=== PATIENT | male | born 1965 | race American Indian/Alaskan Native ===

== ENCOUNTER 2017-09-01 19:07 | Emergency (ER) | payer SELFPAY ==
--- NOTE | 2017-09-01 20:03 | Cat Scan Report ---
FINAL REPORT PROCEDURE: CT HEAD/BRAIN WO CON TECHNIQUE: Computerized tomography of the head was performed without contrast material. HISTORY: head injury COMPARISON: No prior studies are available for comparison. FINDINGS: There is no CT evidence of intracranial mass, hemorrhage, acute territorial infarction, or hydrocephalus. The intracranial arteries are symmetric in density. Calvarium is intact. Visualized paranasal sinuses and mastoids are aerated. IMPRESSION: No CT evidence of acute intracranial abnormality
[2017-09-02] MEDS ORDERED: TORADOL IM ONE (02:02)
--- NOTE | 2017-09-02 02:08 | Emergency Department Report ---
ED Head Trauma HPI - General Chief complaint: Head Injury Stated complaint: HEAD INJURY/POSSIBLE CONCUSSION Time Seen by Provider: 09/02/17 01:41 Source: patient Mode of arrival: Ambulatory Limitations: No Limitations - History of Present Illness Initial comments: 52-year-old male with no past medical history presents to the hospital complains of headache and syncope status post head injury. On August 28 patient had a helmet on when a concrete plate fell from a two-story height on the top of his head. Positive LOC and confusion after the event. Patient's continued to have a headache and right-sided neck pain worse with movement and palpation. Pain currently rated 6 out of 10 in intensity. He is taking Tammie aspirin with some relief at home. Today was sitting in a bed on the phone he felt nauseated and dizzy and passed out between 7 AM and 1 PM as per patient's family member. Patient was home alone at the time. No complaints of chest pain , shortness of breath, vomiting, weakness, or paresthesias. - Related Data Previous Rx's Medication Instructions Recorded Last Taken Type Ibuprofen [Motrin] 800 mg PO Q8HR PRN #30 tablet 09/02/17 Unknown Rx Allergies/Adverse reactions: Allergies Allergy/AdvReac Type Severity Reaction Status Date / Time No Known Allergies Allergy Verified 09/02/17 04:46 ED Review of Systems ROS: Stated complaint: HEAD INJURY/POSSIBLE CONCUSSION Other details as noted in HPI Comment: All other systems reviewed and negative Other: Constitutional: No fevers chills Eyes: No eye pain visual changes ENT: No ear pain or throat pain Neck: as per hpi Respiratory: Denies cough wheezing shortness of breath Cardiovascular: Denies chest pain, palpitations GI: Denies abdominal pain, vomiting, diarrhea, : Denies dysuria, urinary frequency, or urgency Musculoskeletal: Denies back pain, joint swelling Skin: Denies rash, lesions, erythema Neurologic: Denies headache, numbness, weakness Psychiatric: Denies suicidal ideation, hallucinations ED Past Medical Hx - Past Medical History Previous Medical History?: No - Surgical History Past Surgical History?: No - Social History Smoking Status: Never Smoker Substance Use Type: None - Medications Home Medications: Home Medications Medication Instructions Recorded Confirmed Last Taken Type Ibuprofen [Motrin] 800 mg PO Q8HR PRN #30 tablet 09/02/17 Unknown Rx ED Physical Exam - General Limitations: No Limitations - Other Other exam information: General: No limitations, patient is alert in no acute distress Head exam: No hematoma, normocephalic Eyes exam: Normal appearance ENT: Moist mucous membrane, normal oropharynx Neck exam: Normal inspection, full range of motion, no meningismus, right sided neck tenderness trapezius sternocleidomastoid without midline tenderness or step -off Respiratory exam: Clear to auscultation bilateral, no wheezes, rales, crackles Cardiovascular: Normal rate and rhythm, normal heart sounds Abdomen: Soft, nondistended, and nontender, with normal bowel sounds, no rebound, or guarding Extremity: Full range of motion normal inspection no deformity Back: Normal Inspection, full range of motion, no tenderness Neurologic: Alert, oriented x3, cranial nerves intact, no motor or sensory deficit Psychiatric: normal affect, normal mood Skin: Warm, dry, intact ED Course Vital Signs 09/01/17 09/02/17 09/02/17 19:23 00:39 00:40 Temperature 98.3 F Pulse Rate 77 73 Respiratory 17 16 16 Rate Blood Pressure 156/108 Blood Pressure 146/96 [Left] O2 Sat by Pulse 99 Oximetry 09/02/17 05:18 Temperature Pulse Rate 70 Respiratory 16 Rate Blood Pressure Blood Pressure 139/93 [Left] O2 Sat by Pulse 98 Oximetry - Reevaluation(s) Reevaluation #1: 09/02/17 06:56 Patient was orthostatic with an almost 30 beat increase in heart rate with standing. BP did not decrease. Patient received 1 L normal saline. Toradol helped with pain. - Lab Data Result diagrams: 09/02/17 02:14 09/02/17 02:14 Lab Results 09/02/17 09/02/17 Range/Units 02:14 02:14 WBC 7.9 (4.5-11.0) K/mm3 RBC 5.07 H (3.65-5.03) M/mm3 Hgb 15.1 (11.8-15.2) gm/dl Hct 44.0 (35.5-45.6) % MCV 87 (84-94) fl MCH 30 (28-32) pg MCHC 34 (32-34) % RDW 13.4 (13.2-15.2) % Plt Count 217 (140-440) K/mm3 Lymph % (Auto) 41.6 H (13.4-35.0) % Faulk % (Auto) 10.2 H (0.0-7.3) % Eos % (Auto) 3.3 (0.0-4.3) % Baso % (Auto) 0.3 (0.0-1.8) % Lymph # 3.3 (1.2-5.4) K/mm3 Faulk # 0.8 (0.0-0.8) K/mm3 Eos # 0.3 (0.0-0.4) K/mm3 Baso # 0.0 (0.0-0.1) K/mm3 Seg Neutrophils % 44.6 (40.0-70.0) % Seg Neutrophils # 3.5 (1.8-7.7) K/mm3 Sodium 141 (137-145) mmol/L Potassium 3.4 L (3.6-5.0) mmol/L Chloride 100.1 (98-107) mmol/L Carbon Dioxide 27 (22-30) mmol/L Anion Gap 17 mmol/L BUN 12 (9-20) mg/dL Creatinine 0.7 L (0.8-1.5) mg/dL Estimated GFR > 60 ml/min BUN/Creatinine Ratio 17 % Glucose 95 (75-100) mg/dL Calcium 8.6 (8.4-10.2) mg/dL Total Creatine Kinase 92 (55-170) units/L CK-MB (CK-2) 2.0 (0.0-4.0) ng/mL CK-MB (CK-2) Rel Index 2.1 (0-4) Troponin T < 0.010 (0.00-0.029) ng/mL - EKG Data -: EKG Interpreted by Ri EKG shows normal: sinus rhythm, axis (-19), QRS complexes (94), ST-T waves (no stemi/t inv) Rate: normal (64) - Radiology Data Radiology results: report reviewed Read by radiologist CT head: No acute findings ct cervical spine: Degenerative changes no acute finding - Medical Decision Making Patient discharged home with Motrin as needed for pain interest to follow with a primary care doctor and neurologist for postconcussive syndrome. Positive orthostasis was noted and patient received IV fluids. Blood pressure was mildly elevated but improved prior to discharge. - Differential Diagnosis concussion, ICH, fracture, anemia, arrhythmia, dehydration Critical Care Time: No Critical care attestation.: If time is entered above; I have spent that time in minutes in the direct care of this critically ill patient, excluding procedure time. ED Disposition Clinical Impression: Concussion syndrome, Syncope, Dehydration Disposition: DC-01 TO HOME OR SELFCARE Is pt being admited?: No Does the pt Need Aspirin: No Condition: Stable Instructions: Syncope (ED), Concussion (ED) Additional Instructions: Take the medication as needed for pain. Do not take this and Tammie aspirin together. Return if symptoms worsen. Alert with the primary care clinic and neurologist Prescriptions: Ibuprofen [Motrin] 800 mg PO Q8HR PRN #30 tablet PRN Reason: Pain Referrals: DERIK JACKSON MD [Staff Physician] - 3-5 Days (Neurologist) [facility] [Provider Group] - 3-5 Days (Primary care clinic) Time of Disposition: 06:59
[2017-09-02 02:38] LABS: Basophils % (Auto) 0.3 % (0.0-1.8); Eosinophils # (Auto) 0.3 K/mm3 (0.0-0.4); Eosinophils % (Auto) 3.3 % (0.0-4.3); Hemoglobin 15.1 gm/dl (11.8-15.2); Lymphocytes # (Auto) 3.3 K/mm3 (1.2-5.4); Lymphocytes % (Auto) 41.6 % (13.4-35.0); Mean Corpuscular HGB Conc 34 % (32-34); Mean Corpuscular Hemoglobin 30 pg (28-32); Mean Corpuscular Volume 87 fl (84-94); Monocytes # (Auto) 0.8 K/mm3 (0.0-0.8); Monocytes % (Auto) 10.2 % (0.0-7.3); Platelet Count 217 K/mm3 (140-440); Red Blood Count 5.07 M/mm3 (3.65-5.03); Red Cell Distribution Width 13.4 % (13.2-15.2)
--- NOTE | 2017-09-02 02:54 | Cat Scan Report ---
FINAL REPORT EXAM: CT CERVICAL SPINE WO CON HISTORY: head injury, left neck pain COMPARISON: None available. TECHNIQUE: Axial images obtained through the cervical spine. Additional sagittal and coronal reformatted images were obtained. FINDINGS: Normal lordotic curvature of the cervical spine. Cervical vertebral body heights are preserved. No acute fracture or traumatic subluxation. Odontoid process, articular pillars and occipital condyles are intact. Mild to moderate degenerative changes. Mild canal stenosis and foraminal narrowing at several levels due to endplate osteophyte, uncovertebral hypertrophy and facet changes. Mild to moderate unilateral foraminal narrowing at the C3-C4 level. IMPRESSION: No acute fracture or subluxation of the cervical spine. Mild to moderate degenerative changes.
[2017-09-02 03:04] LABS: BUN/Creatinine Ratio 17; Blood Urea Nitrogen 12 mg/dL (9-20); Calcium 8.6 mg/dL (8.4-10.2); Hemolysis Index 13
[2017-09-02] MEDS ORDERED: K-DUR PO ONE (03:10)
[2017-09-02] MEDS ORDERED: NACL 0.9% 1000 ML 1,000 ML IV ONE (04:28)
[2017-09-02] MEDS ORDERED: NACL 0.9% 1000 ML 1,000 ML ONE (04:29)
[2017-09-02 07:29] VITALS: BP 120/81
== END 2017-09-02 07:34 | disposition home or self-care (01) ==
LOC: ED 19:07
DX: F07.81 Postconcussional syndrome (principal); R55 Syncope and collapse; E86.0 Dehydration
CPT/HCPCS: 36415; 70450; 72125; 80048; 82550; 82553; 82962; 84484; 85025; 93005; 93010; 96360; 96372; 99284; J1885; J7030